=== PATIENT | male | born 1985 | race Caucasian/White ===

== ENCOUNTER 2020-11-22 11:57 | Emergency (ER) | payer OTHER ==
[2020-11-22 12:44] LABS: HEMOGLOBIN 14.2 gm/dl (14.0-17.5); RED BLOOD COUNT 5.41 M/UL (4.20-5.50)
[2020-11-22 13:12] LABS: BUN/CREATININE RATIO 16 (0-10)
[2020-11-22] MEDS ORDERED: BENTYL 10MG CAP10 MG PO (15:32)
[2020-11-22] MEDS ORDERED: PEPCID20 MG PO (15:32)
[2020-11-22] MEDS ORDERED: ZOFRAN ODT 4 MG4 MG PO (15:32)
== END 2020-11-22 16:42 | disposition home or self-care (01) ==
LOC: ER1 11:57
PROVIDERS: Nurse Practitioner
DX: K56.7 Ileus, unspecified (principal); F17.210 Nicotine dependence, cigarettes, uncomplicated; F19.90 Other psychoactive substance use, unspecified, uncomplicated; Z90.89 Acquired absence of other organs
CPT/HCPCS: 80053; 80307; 81001; 83605; 83690; 85025; 96372; 96374; 96375; 99284; J0500; J2405; Q9967

== ENCOUNTER 2021-01-21 22:39 | Emergency (ER) | payer OTHER ==
[~2021-01-21 22:39] MED LIST: BENTYL 10MG CAP10 MG PO; PEPCID20 MG PO; ZOFRAN ODT 4 MG4 MG PO
== END 2021-01-22 00:33 | disposition short-term general hospital (02) ==
LOC: ER1 22:39
DX: S05.91XA Unspecified injury of right eye and orbit, initial encounter (principal); F17.210 Nicotine dependence, cigarettes, uncomplicated; W22.8XXA Striking against or struck by other objects, initial encounter; Z23 Encounter for immunization
CPT/HCPCS: 90471; 90715; 96374; 96375; 99284